=== PATIENT | male | born 1970 | race Caucasian/White ===

== ENCOUNTER 2017-09-27 16:59 | Observation (INO) ==
[2017-09-27 17:52] LABS: Basophils # 0.1 K/mcL (0.0-0.2); Basophils % 0.8 %; Eosinophils % 0.4 %; Hematocrit 46.9 % (37.5-50.1); Hemoglobin 15.8 g/dL (12.9-16.9); Immature Granulocytes % 0.3 % (0-4); Immature Platelets 9.2 % (1.1-6.1); Lymphocytes # 1.1 K/mcL (0.6-4.6); Lymphocytes % 14.3 %; Mean Corpuscular HGB Conc 33.7 g/dL (31.6-35.5); Mean Corpuscular Hemoglobin 27.8 pg (28.0-33.3); Mean Corpuscular Volume 82.6 fL (83.0-100.0); Mean Platelet Volume 10.8 fL (9.4-12.4); Monocytes # 0.2 K/mcL (0.0-1.3); Monocytes % 2.8 %; Neutrophils # 6.5 K/mcL (1.6-8.9); Platelet Count 187 K/mcL (140-400); Red Blood Count 5.68 M/mcL (4.19-5.50); Red Cell Distribution Width 12.6 % (11.5-14.5); Segmented Neutrophils % 81.4 %
[2017-09-27 18:09] LABS: BUN/Creatinine Ratio 11 (6-26); Blood Urea Nitrogen 11 mg/dL (6-20); Calcium 9.7 mg/dL (8.6-10.3); Carbon Dioxide 26 mEq/L (23-29); Chloride 100 mEq/L (98-107); Glucose 126 mg/dL (70-105); Osmolality,Calculated 279 (280-300); Potassium 3.9 mEq/L (3.5-5.1); Sodium 134 mEq/L (136-145); Troponin I < 0.03 ng/mL (< 0.04); eGFR For African Americans > 60 (> 60); eGFR For Non-African Americans > 60 (> 60)
[2017-09-27] MEDS ORDERED: Aspirin 81 MG TAB.CHEW PO ONE (18:48)
--- NOTE | 2017-09-27 18:49 | Emergency Department Note ---
Disposition Clinical Impression: Chest pain, rule out acute myocardial infarction Chest pain Qualifiers: Chest pain type: precordial pain Qualified Code(s): R07.2 - Precordial pain Disposition: Admitted As Inpatient Condition: Good Referrals: Bud Webster MD [Primary Care Provider] - Forms: ED Satisfaction Letter Chest Pain HPI - General Chief Complaint: ED Chest Pain Stated Complaint: "high bp,CP" Time Seen by Provider: 09/27/17 18:29 Limitations: no limitations - History of Present Illness HPI Narrative: Mr. Rodríguez is a very pleasant 47-year-old male with a past history of tobacco abuse and hypertension who presents to the [facility] emergency department with a chief complaint of chest pain for duration of 2 days. He was seen at [facility] this morning and was discharged home and decided to return to the ED with continuation of chest pain. He states that he presented had similar complaints back in November 2016 and was worked up in at the emergency room and was benign. Patient states the pain is achy and intermittent in nature that occasion radiates to his left arm and left neck regions. He is not taking any medications for this complaint and nothing seems to alleviate or worsen this pain. He denies any shortness of breath or palpitations. These occur every day smoker which he smokes 1.5 packs per day for roughly 25 years. He reports that his father had a UT before his age was uncertain if this was premature accelerated CAD as otherwise has no known medical history. He does understand that he was beginning to be worked up for chest pain roughly 3 years ago with a stress test but did not follow through. No other complaints at this time. Severity scale (1-10): 0 - Related Data Home Medications Medication Instructions Recorded Confirmed hydroCHLOROthiazide 25 mg PO DAILY 04/14/17 09/06/17 [Hydrochlorothiazide] Carvedilol 12.5 mg PO BID 09/06/17 09/06/17 amLODIPine [Norvasc] 5 mg PO DAILY 09/06/17 09/06/17 Meloxicam [Meloxicam] 15 mg PO DAILY 09/27/17 predniSONE [PredniSONE] See Taper PO DAILY 09/27/17 09/27/17 Allergies Allergy/AdvReac Type Severity Reaction Status Date / Time diazepam [From Valium] Allergy Irritable Verified 09/06/17 12:34 Review of Systems: Constitutional: No fever Vision: No blurred vision ENT: No rhinorrhea Respiratory: No cough Cardiovascular: chest pain Allergic: No allergies : No blood in urine GI: No blood in stool Hematologic: No bruising Dermatologic: No skin rash Musculoskeletal: pain in the extremities Neuro: No numbness of the extremities Chest Pain PMH - Past Medical History Medical history: Reports: arthritis, GERD, hypertension Psychiatric history: Reports: no psych history - Social History Smoking Status: Current every day smoker Alcohol use: Reports: none Drug use: Reports: none Physical Exam CONSTITUTIONAL: Alert and oriented X3 in no apparent distress HEAD: Normocephalic; atraumatic. RESP: NRD without use of accessory musculature, CTA b/l with no wheezes/rales/ rhonchi CARD: Regular rhythm, without murmurs, rubs, or gallop. No reproducible chest pain. ABD: grossly normal, soft, non-tender, no guarding/distention/rigidity SKIN: normal appearance, no pallor/diaphoresis,mottling,jaundice,cyanosis EXT: PT pulses 2+ and symmetrical; no lateralizing edema; no other lesions seen PSYCH: appropriate mood/affect - General Limitations: no limitations Course Course Narrative: Patient was seen and examined at bedside. Patient is in no acute distress and is very conversant. Initial workup demonstrates normal CBC, BMP and troponin negative. EKG demonstrates no ischemic changes. Chest x-ray no acute process. The presence of recurrent chest pain, multiple risk factors, possible history of CAD and heart score of 5 will admit patient to the hospital service to rule out ACS with likely stress test tomorrow.Discussed case wit Dr. Yarbrough and accepted for admission. Vital Signs Temperature 97.6 F 09/27/17 17:02 Pulse Rate 77 09/27/17 17:02 Respiratory Rate 18 09/27/17 17:02 Blood Pressure 179/109 09/27/17 17:02 O2 Sat by Pulse Oximetry 96 09/27/17 17:02 Temperature 97.6 F 09/27/17 17:02 Pulse Rate 77 09/27/17 17:02 Respiratory Rate 18 09/27/17 17:02 Blood Pressure 179/109 09/27/17 17:02 O2 Sat by Pulse Oximetry 96 09/27/17 17:02 Oxygen Delivery Oxygen Delivery Room Air Chest Pain - Medical Records Medical records reviewed: Yes I reviewed the patient's medical records. - Lab Data Lab results reviewed: Yes I reviewed the patient's lab results. Result diagrams: 09/27/17 17:25 09/27/17 17:25 Lab Results 09/27/17 09/27/17 Range/Units 17:25 17:25 WBC 7.9 (4.3-11.1) K/mcL RBC 5.68 H (4.19-5.50) M/mcL Hgb 15.8 (12.9-16.9) g/dL Hct 46.9 (37.5-50.1) % MCV 82.6 L (83.0-100.0) fL MCH 27.8 L (28.0-33.3) pg MCHC 33.7 (31.6-35.5) g/dL RDW 12.6 (11.5-14.5) % Plt Count 187 (140-400) K/mcL MPV 10.8 (9.4-12.4) fL Immature Gran % 0.3 (0-4) % Seg Neutrophils % 81.4 % Lymphocytes % 14.3 % Monocytes % 2.8 % Eosinophils % 0.4 % Basophils % 0.8 % Neutrophils # 6.5 (1.6-8.9) K/mcL Lymphocytes # 1.1 (0.6-4.6) K/mcL Monocytes # 0.2 (0.0-1.3) K/mcL Eosinophils # 0.0 (0.0-0.6) K/mcL Basophils # 0.1 (0.0-0.2) K/mcL Immature Plt Fraction 9.2 H (1.1-6.1) % Sodium 134 L (136-145) mEq/L Potassium 3.9 (3.5-5.1) mEq/L Chloride 100 (98-107) mEq/L Carbon Dioxide 26 (23-29) mEq/L BUN 11 (6-20) mg/dL Creatinine 0.96 (0.70-1.30) mg/dL Est GFR ( Amer) > 60 (> 60) Est GFR (Non-Af Amer) > 60 (> 60) BUN/Creatinine Ratio 11 (6-26) Glucose 126 H (70-105) mg/dL Calculated Osmolality 279 L (280-300) Calcium 9.7 (8.6-10.3) mg/dL Troponin I < 0.03 (< 0.04) ng/mL - Radiology Data Radiology results reviewed: Yes I reviewed the patient's radiology results. Chest X-Ray 09/27/17 17:06 IMPRESSION: No acute findings in the chest. D/ / Vern Mejias MD / Vern Mejias MD Interpreting Provider: Vern Mejias MD - EKG Data EKG attestation: Yes I reviewed and interpreted this EKG. EKG results narrative: Heart rate 74, normal axis, IN 137, QRS 90 consistent with normal sinus rhythm with possible LVH and is otherwise a benign EKG that is unchanged from previous. Heart Score - Score History: Moderately Suspicious EKG: Non Specific repolarisation Disturbance Age: 45-65 Risk Factors: Equal/Greater than 3 risk factor or history of atherosclerotic disease Troponin: Less than normal limit HEART Score Total: 5
[2017-09-27] MEDS ORDERED: *HR* Promethazine 25 MG/ML VIAL IVP PRN (19:22)
[2017-09-27] MEDS ORDERED: Naloxone 0.4 MG/ML INJ IVP PRN (19:22)
[2017-09-27] MEDS ORDERED: *HR* HYDROcodone/Acet 5/325 mg TABLET PO PRN (19:22)
[2017-09-27] MEDS ORDERED: Ondansetron 4 MG/2 ML VIAL IVP PRN (19:22)
[2017-09-27] MEDS ORDERED: Nitroglycerin 0.4 MG TAB.SUBL SL PRN (19:31)
[2017-09-27] MEDS ORDERED: Ipratropium/Albuterol Neb 3 ML IH PRN (21:26)
--- NOTE | 2017-09-27 21:33 | Internal Med History&Physical ---
Date of Encounter: 09/27/17 Time of Encounter: 20:00 Internal Medicine - H&P: HPI Chief complaint: Chest pain Admitted From: Emergency Dept Plans for Post Hospital Care: Home History of present illness: Mr. Rodríguez is a 47 year old male with known HTN and chronic tobacco dependence pt presented to ER with Left chest wall pain from last 2 days. He states his CP 6/10 in severity, radiating to his Left arm, more like pressure and tightness and intermittent pain. He denied any SOB. He denied previous cardiac work up. However he had similar kind of CP in the past in November 2016. Past Med Surg Social Fam HX - Past Medical History Medical history: arthritis, GERD, hypertension Psychiatric history: no psych history - Social History Smoking Status: Current every day smoker Smokeless Tobacco Status: No Alcohol use: none Drug use: none - Family History Father Hx Family Cardiac Disorders: Yes ([place]) Mother Hx Family Cardiac Disorders: Yes (Sisck sinus syndrome s/p Pacemaker) Internal Medicine - H&P: Meds hydroCHLOROthiazide [Hydrochlorothiazide] 25 mg PO DAILY 04/14/17 [History] Carvedilol 12.5 mg PO BID 09/06/17 [History] amLODIPine [Norvasc] 5 mg PO DAILY 09/06/17 [History] Meloxicam [Meloxicam] 15 mg PO DAILY 09/27/17 [History] predniSONE [PredniSONE] See Taper PO DAILY 09/27/17 [History] 3 Allergy/AdvReac Type Severity Reaction Status Date / Time diazepam [From Valium] Allergy Irritable Verified 09/06/17 12:34 All Systems PM: A 10-system review of systems was performed and is negative for pertinent findings except as documented above in the HPI. Review of systems: All the systems are reviewed everything is benign except the systems and symptoms I mentioned in the history of present illness - Constitutional Vitals: Temp Pulse Resp BP Pulse Ox 97.6 F 77 18 179/109 96 09/27/17 17:02 09/27/17 17:02 09/27/17 17:02 09/27/17 17:02 09/27/17 17:02 General appearance: Present: A&O X 3, no acute distress, answers questions appropriately - Head Head exam: Present: atraumatic, normal inspection - Neck Neck exam general surgery: Present: supple - Respiratory Respiratory exam: Present: decreased breath sounds. Absent: rales, respiratory distress, rhonchi, wheezes - Cardiovascular Cardiovascular exam: Present: +S1, +S2. Absent: tachycardia - GI/Abdominal GI/Abdominal exam: Present: normal bowel sounds, soft. Absent: rebound, rigid, tenderness - Extremities Exam Extremities exam: Absent: calf tenderness, pedal edema, tenderness - Back Exam Back exam: Absent: CVA tenderness (L), CVA tenderness (R) - Neurological Exam Neurological exam: Present: alert, oriented X3 - Psychiatric Psychiatric exam: Present: normal affect, normal mood - Skin Skin exam: Absent: rash Internal Med - H&P Results - Labs CBC & Chem 7: 09/27/17 17:25 09/27/17 17:25 - Assessment and plan (1) Chest pain Current Visit: Yes Status: Acute Assessment and plan: Will admit the pt into Tele for observation Will place pt on secured entrance monitor check serial troponin so far negative troponin EKG reviewed - NSR, no acute ST T changes noticed. No acute ischemic changes noticed will start pt on ASA, and Nitro PRN for pain Will check FLP in AM Will get stress test in AM since pt is high risk for ACS Qualifiers: Chest pain type: unspecified Qualified Code(s): R07.9 - Chest pain, unspecified (2) HTN (hypertension) Current Visit: Yes Status: Acute Assessment and plan: Fairly controlled resumed home medications Coreg, Norvasc and HCT[employer] Inc Norvasc to 10mg Qualifiers: Hypertension type: essential hypertension Qualified Code(s): I10 - Essential (primary) hypertension (3) Tobacco dependence Current Visit: Yes Status: Acute Assessment and plan: Counseled to quit smoking placed on nicotine patch - Time Spent With Patient Total time spent is greater than 50% in coordination of care (as documented) at patient's floor/unit and/or counseling patient:
[2017-09-27] MEDS: Nicotine 21 MG PATCH.TD24 TD SCH (22:50)
[2017-09-28 07:07] LABS: Chol/HDL Ratio 6.3 (0-4.9); Cholesterol 157 mg/dL (< 200); HDL Cholesterol 25 mg/dL (40-59); LDL Cholesterol,Calculated 110 mg/dL (0-99); Triglycerides 108 mg/dL (< 150)
[2017-09-28 07:08] LABS: Troponin I < 0.03 ng/mL (< 0.04)
[2017-09-28] MEDS: Acetaminophen 325 MG TABLET PO PRN ×2 (07:44→15:35)
[2017-09-28] MEDS ORDERED: Regadenoson 0.4 MG/5 ML SYRINGE IVP ONE (08:26)
[2017-09-28] MEDS ORDERED: amLODIPine 5 MG TABLET PO SCH (09:00)
[2017-09-28] MEDS: Aspirin Enteric Coated 81 MG Tablet PO SCH (10:36)
[2017-09-28] MEDS: amLODIPine 5 MG TABLET PO SCH (10:36)
[2017-09-28] MEDS: hydroCHLOROthiazide 25 MG TABLET PO SCH (10:41)
[2017-09-28] MEDS: Nicotine 21 MG PATCH.TD24 TD SCH (10:42)
[2017-09-28] MEDS: predniSONE 20 MG TABLET PO SCH (12:21)
--- NOTE | 2017-09-28 18:02 | Internal Med Progress Note ---
Date of Encounter: 09/28/17 Time of Encounter: 11:25 - Assessment and plan (1) Chest pain Current Visit: Yes Status: Acute Assessment and plan: Patient denies chest pain currently. Is not reproducible with palpation, deep inspiration, movement. Patient is a 2 day stress test. Due to will be completed tomorrow. Troponins negative. Cholesterol and triglycerides within normal limits, HDL is low at 25. Test x-ray negative. Continue telemetry Continue Norvasc, aspirin, beta zack, hydrochlorothiazide. Days to stress test pending, consider cardiology consult based on results. Continue to monitor vital signs patient condition, labs. Qualifiers: Chest pain type: unspecified Qualified Code(s): R07.9 - Chest pain, unspecified (2) HTN (hypertension) Current Visit: Yes Status: Acute Assessment and plan: Well-controlled in the hospital setting. Continue home medications. Continue monitoring vital signs per admission order. Qualifiers: Hypertension type: essential hypertension Qualified Code(s): I10 - Essential (primary) hypertension (3) Tobacco dependence Current Visit: Yes Status: Acute Assessment and plan: Counseled to quit smoking. Patient denies cravings. Continue nicotine patch, encourage for home. - Time Spent With Patient Total time spent is greater than 50% in coordination of care (as documented) at patient's floor/unit and/or counseling patient: less than 15 minutes - Subjective Interval history: Patient was seen and assessed the bedside 11:25 AM. Daughter appetite. Patient denies any chest pain. Reports onset of chest pain 4-5 days ago. He denies any cough. States that he was seen in urgent care [facility] yesterday told that he had bronchitis, was given 20 mg of prednisone as a taper. He has been restarted. Currently denies chest pain, shortness of breath , nausea, vomiting, diaphoresis, diarrhea or abdominal pain. No peripheral edema, no productive cough, fever or chills. Patient is a 2 day stress test. He did request to leave and come back in the morning to continue. I discussed with him his risk factors and that he should stay for continued evaluation. He was in agreement. Likely will be discharged tomorrow. - Constitutional Vitals: Temp Pulse Resp BP Pulse Ox 98.0 F 79 16 157/93 94 09/28/17 15:40 09/28/17 15:40 09/28/17 15:40 04/10/18 15:40 09/28/17 15:40 General appearance: Present: cooperative, A&O X 3, pleasant, no acute distress, answers questions appropriately - Head Head exam: Present: atraumatic, normal inspection, normocephalic - Eye Eye exam: Present: normal appearance, conjuntiva pink, sclera anicteric - Neck Neck exam general surgery: Present: supple, trachea midline. Absent: lymphadenopathy, tenderness - Respiratory Respiratory exam: Present: CTAB. Absent: accessory muscle use, chest wall tenderness, rales, respiratory distress, rhonchi, wheezes - Cardiovascular Cardiovascular exam: Present: RRR, +S1, +S2. Absent: diastolic murmur, gallop, rubs, systolic murmur - GI/Abdominal GI/Abdominal exam: Present: normal bowel sounds, soft. Absent: distended, hepatomegaly, tenderness - Extremities Exam Extremities exam: Present: normal capillary refill, normal inspection, warm, radial pulses palpable and symmetrical. Absent: calf tenderness, cyanotic, pedal edema, tenderness - Neurological Exam Neurological exam: Present: alert, oriented X3, no focal deficits. Absent: facial droop, speech deficit - Skin Skin exam: Present: dry, intact, normal color, warm. Absent: rash Internal Medicine: Result - Labs CBC & Chem 7: 09/27/17 17:25 09/27/17 17:25 Labs: Cardiac Enzymes 09/28/17 09/28/17 Range/Units 00:19 06:15 Troponin I < 0.03 < 0.03 (< 0.04) ng/mL Consult Discharge Plan - Plan Referrals: Bud Webster MD [Primary Care Provider] -
--- NOTE | 2017-09-28 23:43 | Electrocardiograph Report ---
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
[2017-09-29] MEDS: Nicotine 21 MG PATCH.TD24 TD SCH (09:01)
[2017-09-29] MEDS: predniSONE 20 MG TABLET PO SCH (09:01)
[2017-09-29] MEDS: amLODIPine 5 MG TABLET PO SCH (09:01)
[2017-09-29] MEDS: Aspirin Enteric Coated 81 MG Tablet PO SCH (09:01)
[2017-09-29] MEDS: hydroCHLOROthiazide 25 MG TABLET PO SCH (09:01)
[2017-09-29 10:33] VITALS: BP 124/84
--- NOTE | 2017-09-29 12:08 | Discharge Summary ---
Date of Encounter: 09/29/17 Time of Encounter: 12:25 - Discharge Diagnosis (1) Chest pain Priority: Primary Status: Acute Comments: Resolved. Pt denies chest pain since arrival. Stress test negative for ischemia or infarct. Encourage risk factor modification including diet changes, exercise, and smoking cessation. Pt denies need for nicotine replacement therapy. Continue ASA, BB, HCTZ, Norvasc. Qualifiers: Chest pain type: unspecified Qualified Code(s): R07.9 - Chest pain, unspecified (2) HTN (hypertension) Priority: Secondary Status: Chronic Comments: Continue home medications. Chronic. Well controlled inpatient. Qualifiers: Hypertension type: essential hypertension Qualified Code(s): I10 - Essential (primary) hypertension (3) Tobacco dependence Priority: Secondary Status: Chronic Comments: Pt denies need for nicotine replacement therapy. Smoking cessation and lifestyle modification education completed. Hospital course: Mr. Rodríguez is a 47 year old male with past medical history of tobacco use, hypertension. Patient presented to the emergency department with left chest wall pain for 2 days prior to admission. He states it was a 6/10 in severity, radiated to his left arm. He describes it as a pressure, tightness, intermittent. He denied shortness of breath. Patient also is currently being treated for bronchitis. The pain is not reproducible with palpation or movement , however it is reproducible with deep inspiration. He has remained pain free and is taking his steroids from home. His physical exam is unremarkable. Troponins were negative, chest x-ray was negative, stress test was negative for ischemia or infarct with a gated EF of 34%. LV mildly dilated. Recommended patient follow-up with cardiology. He and I discussed at length lifestyle modifications. He reports that he has custody of one of his young grandchildren , he has work stress, home stress. Chest pain likely from stress/hypotension. He states that he knows that he has to stop smoking, I have discussed smoking cessation strategies and have sent a prescription for NicoDerm patches to his pharmacy. Patient reports labile blood pressure at home, has been well controlled here in the hospital setting. Recommend continuing his home medications. We discussed keeping a log of blood pressures at home and presenting to primary care with elevated readings and for potential medication adjustments. Patient is pain-free. His labs and vital signs are stable and within normal limits. Workup and physical exam are unremarkable. Patient is stable and appropriate for discharge. Discharge discussed with: patient, nurse Time spent discussing smoking cessation with patient: 3 to 10 minutes - Time Spent with Patient Total time spent providing and/or coordinating discharge services: Less than 30 minutes - Discharge Medications Prescriptions: Aspirin Enteric Coated [Aspirin EC] 81 mg PO DAILY #30 tablet. Nicotine Patch [Nicoderm] 21 mg TD DAILY #30 patch.[email or web address] Home Medications: hydroCHLOROthiazide [Hydrochlorothiazide] 25 mg PO DAILY 04/14/17 [History] Carvedilol 12.5 mg PO BID 09/06/17 [History] amLODIPine [Norvasc] 5 mg PO DAILY 09/06/17 [History] Meloxicam 15 mg PO DAILY 09/27/17 [History] predniSONE [PredniSONE] See Taper PO DAILY 09/27/17 [History] Aspirin Enteric Coated [Aspirin EC] 81 mg PO DAILY #30 tablet. 09/29/17 [Rx] Nicotine Patch [Nicoderm] 21 mg TD DAILY #30 patch.[email or web address] 09/29/17 [Rx] Allergies/Adverse Reactions: 3 Allergy/AdvReac Type Severity Reaction Status Date / Time diazepam [From Valium] Allergy Irritable Verified 09/06/17 12:34 Date of admission: 09/27/17 20:08 Primary care physician: Bud Webster MD Discharging clinician: Laura Carr Anticipated date of discharge: 09/29/17 - Constitutional Vitals: Temp Pulse Resp BP Pulse Ox 97.4 F L 65 16 124/84 93 09/29/17 10:32 09/29/17 10:32 09/29/17 10:32 09/29/17 10:32 09/29/17 10:32 General appearance: Present: cooperative, A&O X 3, pleasant, no acute distress, answers questions appropriately - Head Head exam: Present: atraumatic, normal inspection, normocephalic - Eye Eye exam: Present: normal appearance, conjuntiva pink, sclera anicteric - Neck Neck exam general surgery: Present: normal inspection, supple, trachea midline. Absent: lymphadenopathy, tenderness - Respiratory Respiratory exam: Present: CTAB. Absent: accessory muscle use, chest wall tenderness, rales, respiratory distress, rhonchi, wheezes - Cardiovascular Cardiovascular exam: Present: RRR, +S1, +S2. Absent: diastolic murmur, gallop, rubs, systolic murmur - GI/Abdominal GI/Abdominal exam: Present: normal bowel sounds, soft. Absent: distended, hepatomegaly, tenderness - Extremities Exam Extremities exam: Present: normal capillary refill, normal inspection, warm, radial pulses palpable and symmetrical. Absent: calf tenderness, cyanotic, pedal edema, tenderness - Neurological Exam Neurological exam: Present: alert, oriented X3, no focal deficits. Absent: facial droop, speech deficit - Skin Skin exam: Present: dry, intact, normal color, warm. Absent: rash - Patient Status Disposition: Home, Self-Care Condition: Good Functional capacity at discharge: independent ambulation Overall status at discharge: patient is back to baseline - Discharge Instructions Follow Up With: Bud Webster MD [Primary Care Provider] - (Your appointment has been webrequested, our offices will call you with an appointment date and time ) Additional Instructions: Please see Dr. Webster in the next 7-10 days for a recheck. Take your medications as directed. Your new prescriptions are at your pharmacy. Return to the ER as needed for any other problems or concerns or if your symptoms return or worsen. Stop smoking, I have sent a prescription for nicoderm patches to your pharmacy. Continue your current medications and return to your normal diet and activities as tolerated. - Diet and Activity Activity: increase activity as tolerated Diet: low fat, low cholesterol
== END 2017-09-29 14:33 | disposition home or self-care (01) ==
LOC: EMEROO 16:59 → 3BNU 16:59
PROVIDERS: ADMIT Family Medicine; ATTEND Registered Nurse